=== PATIENT | male | born 1950 | race Two or more races ===

== ENCOUNTER 2024-06-14 16:03 | Emergency (ER) | payer OTHER ==
[~2024-06-14] VITALS: Ht 165.1 cm; Wt 68.0 kg
[2024-06-14] MEDS ORDERED: KETOROLAC TROMETHAMINE 30 MG VIAL IM STA (16:59)
[2024-06-14] MEDS ORDERED: NAPROXEN500 MG PO (20:38)
== END 2024-06-14 21:04 | disposition home or self-care (01) ==
LOC: ER 16:04
DX: M79.652 Pain in left thigh (principal); M25.532 Pain in left wrist; I10 Essential (primary) hypertension; E11.9 Type 2 diabetes mellitus without complications; Z91.013 Allergy to seafood